=== PATIENT | female | born 1960 | race Hispanic/Latino ===

== ENCOUNTER 2017-02-03 01:40 | Emergency (ER) | payer OTHER ==
[2017-02-03 01:56] VITALS: BP 146/92
[2017-02-03] MEDS ORDERED: TRIPLE ANTIBIOTIC TP ONE ×2 (02:07→02:45)
[2017-02-03] MEDS ORDERED: SILVER NITRATE TP ONE ×2 (02:33→02:42)
[2017-02-03] MEDS ORDERED: BOOSTRIX IM ONE (02:53)
--- NOTE | 2017-02-03 02:57 | Emergency Department Report ---
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 Patient states she was using all puncture patient accidentally jammed her finger into the hole label fuser tender. ED Past Medical Hx - Past Medical History Previous Medical History?: No - Surgical History Past Surgical History?: No - Social History Smoking Status: Never Smoker Substance Use Type: None - Medications Home Medications: Home Medications Medication Instructions Recorded Confirmed Last Taken Type Ibuprofen [Advil] 200 mg PO Q6H PRN 06/16/14 06/23/14 06/09/14 History Multivitamin [Multi Vitamin Daily] 1 each PO QDAY 06/16/14 06/23/14 06/18/14 History Mv,Ca,Min/FA/Herbal No.157 400 mcg PO QDAY 06/16/14 06/23/14 06/18/14 History [Estroven Max Strength Caplet] diphenhydrAMINE [Benadryl] 25 mg PO Q6HR PRN 06/16/14 06/23/14 06/18/14 History Cephalexin [Keflex] 500 mg PO Q12HR #12 cap 02/03/17 Unknown Rx Ibuprofen [Motrin] 800 mg PO Q8HR PRN #30 tablet 02/03/17 Unknown Rx ED Review of Systems ROS: Stated complaint: LEFT SMALL FINGER PAIN Other details as noted in HPI Constitutional: denies: chills, fever Eyes: denies: eye pain, eye discharge, vision change ENT: denies: ear pain, throat pain Respiratory: denies: cough, shortness of breath, wheezing Cardiovascular: denies: chest pain, palpitations Endocrine: no symptoms reported Gastrointestinal: denies: abdominal pain, nausea, diarrhea Genitourinary: denies: urgency, dysuria, discharge Musculoskeletal: denies: back pain, joint swelling, arthralgia Skin: denies: rash, lesions Neurological: denies: headache, weakness, paresthesias Psychiatric: denies: anxiety, depression Hematological/Lymphatic: denies: easy bleeding, easy bruising Physical Exam - Physical Exam Vital Signs: Vital Signs 02/03/17 01:50 Temperature 97.5 F L Pulse Rate 75 Respiratory 16 Rate Blood Pressure 146/92 [Right] O2 Sat by Pulse 100 Oximetry Physical Exam: GENERAL: Alert and oriented x3, no apparent distress, Normal Gait, atraumatic. HEAD: Head is normocephalic and a-traumatic. EYES: Extra ocular muscles are intact. Pupils are equal, round, and reactive to light and accommodation. EARS: symetrical, atraumatic, non tender, ear canal clear and moderate cerumen, tympanic membrance non inflamed. gross auditory nml bilaterally. NOSE: Nose symetrical, Nontender,Nares appeared normal. MOUTH:Mouth is well hydrated and without lesions. Tonsils nonerythematous or swollen, Uvula midline, Tongue not elevated. Mucous membranes are moist. Posterior pharynx clear, no exudate or lesions. Patent airways. NECK: Supple. Non edematous, No carotid bruits. No lymphadenopathy or thyromegaly. No C-spine tenderness LUNGS: Symetrical with respiration, No wheezing, no rales or crackles, CTAB. HEART: S1, S2 present, regular rate and rhythm without murmur, no rubs, no gallops. Non tender to palpation ABDOMEN: No organomegaly was noted,Positive bowel sounds, soft, and non- distended. . Nontender to palpation on all Quadrants, NO CVA tenderness. BREAST: Symetrical, Supple bilaterally, No Masses, lumps, lesions, ulcerations. GENITOURINARY: External genitalia without erythema, exudate or discharge. Vaginal vault is without discharge. Cervix is of normal color without lesion. Cervical os is closed. No bleeding noted. Uterus is noted to be of normal size and nontender. No cervical motion tenderness. No masses are palpated. The adnexa are without masses or tenderness. UROGENITAL: No scrotal mass, Scrotum non tender to palpation bilaterally, no hernia, no scars or penile discharge. EXTREMITIES/MUSCULOSKELETAL: No cyanosis, clubbing, rash, lesions or edema. Full ROM bilaterally. UE/LE Pulses 2+ bilaterally. LE and UE 5+ strength bilaterally, straight leg raise negative bilaterally NEUROLOGIC: The patient is cooperative with no focal neurologic deficits. Cranial nerves II through XII are grossly intact. Normal speech. Normal sensation in V1, V2, V3 bilaterally. Normal sensation in bilateral upper extremities, No loss of sensation, No facial droop, Negative rhomberg. PSYCHIATRIC: Mood is congruent with affect, denies suicidal or homicidal ideations. SKIN: Warm and dry, No lesions, No ulceration or induration present. ED Course Vital Signs 02/03/17 01:50 Temperature 97.5 F L Pulse Rate 75 Respiratory 16 Rate Blood Pressure 146/92 [Right] O2 Sat by Pulse 100 Oximetry ED Medical Decision Making - Medical Decision Making 56-year-old female presents to ED report show nail bed avulsion ED course: Patient had taken 2 Aleve parts in the ED visit. Fifth digit of the right hand nail bed partially removed. Nail was removed bleeding controlled, patient tolerated procedure well Wound was sterilely prepped and draped. Discussed the patient to return to primary care in 2-5 days Discuss acute wound care. Patient was unsure about her tetanus status so she got a tetanus booster ED Signs are normal patient is in no acute distress she understands instructions given and will follow-up. Patient returned to work after d/c Critical care attestation.: If time is entered above; I have spent that time in minutes in the direct care of this critically ill patient, excluding procedure time. ED Disposition Clinical Impression: Fingernail avulsion, partial Qualifiers: Encounter type: initial encounter Qualified Code(s): S61.309A - Unspecified open wound of unspecified finger with damage to nail, initial encounter Disposition: - TO HOME OR SELFCARE Is pt being admited?: No Does the pt Need Aspirin: No Condition: Stable Instructions: Toenail/Fingernail Removal (ED), Acute Wound Care (ED) Additional Instructions: Follow the instructions as given. Keep wound covered and clean and dry Follow-up with your primary care physician Prescriptions: Cephalexin [Keflex] 500 mg PO Q12HR #12 cap Ibuprofen [Motrin] 800 mg PO Q8HR PRN #30 tablet PRN Reason: Pain Referrals: PRIMARY CHAVA, [Primary Care Provider] - 3-5 Days DAYANNA ARNOLD MD [Staff Physician] - 3-5 Days SOPHIE CABRALES MD [Referring] - 3-5 Days Forms: Work/School Release Form(ED) Time of Disposition: 03:02
[2017-02-03] MEDS ORDERED: TRIPLE ANTIBIOTIC TP SCH (08:00)
== END 2017-02-03 03:42 | disposition home or self-care (01) ==
LOC: ED 01:40
DX: S61.309A Unspecified open wound of unspecified finger with damage to nail, initial encounter (principal); X58.XXXA Exposure to other specified factors, initial encounter; Y93.9 Activity, unspecified; Y92.9 Unspecified place or not applicable; Y99.9 Unspecified external cause status
CPT/HCPCS: 90471; 90715; 99282; A6250